=== PATIENT | female | born 1965 | race Caucasian/White ===

== ENCOUNTER 2017-12-16 09:07 | Day surgery (SDC) | payer OTHER ==
[~2017-12-16] VITALS: Ht 160 cm; Wt 71.7 kg
[2017-12-16 09:46] VITALS: BP 125/85; PULSE 81; RESP 18; TEMP 98.2; O2SAT 98
[2017-12-16] MEDS ORDERED: MULTTAB67 PO (09:49)
[2017-12-16] MEDS ORDERED: VITA250T3 PO (09:49)
[2017-12-16] MEDS ORDERED: CLAR10CA3 PO (09:49)
[2017-12-16] MEDS ORDERED: magnesium PO (09:49)
[2017-12-16] MEDS ORDERED: calcium PO (09:49)
[2017-12-16] MEDS ORDERED: zinc PO (09:49)
[2017-12-16] MEDS ORDERED: ZANT150T2 PO (09:50)
[2017-12-16] MEDS ORDERED: SODIUM CHLORIDE 0.9% FLUSH 10 ML FLUSH IV FLUSH PRN (10:15)
--- NOTE | 2017-12-16 10:39 | HHI.HP ---
History of Present Illness Chief Complaint: R LE venous insufficiency, pain and swelling with recurrent thrombosis History of Present Illness 51 yo female with R>L LE swelling; h/o B LE GSV ablation and sclero without relief. No DVT. no wounds Past/Family/Social History Past Medical History venous insufficiency Past Surgical History appy breast augmentation tonsillectomy bunion surgery Social History RN; nonsmoker Family History [place] Home Medications Reported Medications Ranitidine (Zantac) 150 Mg Tab, PO DAILY for Reduce Stomach Acid, #30 TAB 0 Refills 12/16/17 [zinc] No Conflict Check, PO DAILY 12/16/17 [magnesium] No Conflict Check, PO DAILY 12/16/17 [calcium] No Conflict Check, PO DAILY 12/16/17 Ascorbic Acid (Vitamin C) 250 Mg Tab, PO DAILY for Nutritional Supplement, TAB 0 Refills 12/16/17 Loratadine (Claritin) 10 Mg Cap, PO DAILY for Allergy Management, CAP 0 Refills 12/16/17 Multiple Vitamin (Multiple Vitamin) 1 Tab, 1 TAB PO DAILY for Nutritional Supplement, TAB 0 Refills 12/16/17 Coded Allergies: NSAIDS (Non-Steroidal Anti-Inflamma (Verified Allergy, Unknown, 12/16/17) Uncoded Allergies: steroids (Adverse Reaction, Unknown, 12/16/17) Review of Systems Constitutional: COMPLAINS OF: Fever Physical Exam Vitals/I&O Date Time Temp Pulse Resp B/P (MAP) Pulse Ox O2 Delivery O2 Flow Rate FiO2 12/16/17 09:46 98.2 81 18 125/85 (98) 98 Neuro: alert, oriented and no distress HEENT: NC/AT; anicteric sclera Neck: no JVD Heart: reg rate Lungs: nonlabored breathing Vascular: palpable pedal pulses Extremities: thrombosis R LE GSV mildly TTP no erythema, rashes or wounds Laboratory Tests Test 12/16/17 10:05 Caprini VTE Risk Assessment Caprini VTE Risk Assessment: No/Low Risk (score <= 1) Caprini Risk Assessment Model Point Value = 1 Point Value = 2 Point Value = 3 Point Value = 5 Age 41-60 Minor surgery BMI > 25 kg/m2 Swollen legs Varicose veins or History of unexplained or recurrent spontaneous Oral contraceptives or hormone replacement Sepsis (< 1 month) Serious lung disease, including pneumonia (< 1 month) Abnormal pulmonary function Acute myocardial infarction Congestive heart failure (< 1 month) History of inflammatory bowel disease Medical patient at bed rest Age 61-74 Arthroscopic surgery Major open surgery (> 45 min) Laparoscopic surgery (> 45 min) Malignancy Confined to bed (> 72 hours) Immobilizing plaster cast Central venous access Age >= 75 History of VTE Family history of VTE Factor V Leiden Prothrombin [id number] Lupus anticoagulant Anticardiolipin antibodies Elevated serum homocysteine Heparin-induced thrombocytopenia Other congenital or acquired thrombophilia Stroke (< 1 month) Elective arthroplasty Hip, pelvis, or leg fracture Acute spinal cord injury (< 1 month) Prophylaxis Regimen Total Risk Factor Score Risk Level Prophylaxis Regimen 0-1 Low Early ambulation 2 Moderate Order ONE of the following: *Sequential Compression Device (SCD) *Heparin 5000 units SQ BID 3-4 Higher Order ONE of the following medications: *Heparin 5000 units SQ TID *Enoxaparin/Lovenox 40 mg SQ daily (WT < 150 kg, CrCl > 30 mL/min) *Enoxaparin/Lovenox 30 mg SQ daily (WT < 150 kg, CrCl > 10-29 mL/min) *Enoxaparin/Lovenox 30 mg SQ BID (WT < 150 kg, CrCl > 30 mL/min) AND/OR *Sequential Compression Device (SCD) 5 or more Highest Order ONE of the following medications: *Heparin 5000 units SQ TID (Preferred with Epidurals) *Enoxaparin/Lovenox 40 mg SQ daily (WT < 150 kg, CrCl > 30 mL/min) *Enoxaparin/Lovenox 30 mg SQ daily (WT < 150 kg, CrCl > 10-29 mL/min) *Enoxaparin/Lovenox 30 mg SQ BID (WT < 150 kg, CrCl > 30 mL/min) AND *Sequential Compression Device (SCD) Assessment and Plan Plan R LE venous insufficiency, failed saphenous ablation Plan for R LE saphenectomy Discharge Planning later today [facility] [phone] Vlad Miranda MD Dec 16, 2017 10:39
[2017-12-16] MEDS ORDERED: LIDOCAINE HCL 2% 50 ML VIAL ONE (10:50)
[2017-12-16] MEDS ORDERED: fentaNYL CITRATE 250 MCG/5 ML AMP ONE (10:50)
[2017-12-16] MEDS ORDERED: MIDAZOLAM HCL 2 MG/2 ML VIAL ONE ×2 (10:50→11:13)
[2017-12-16] MEDS ORDERED: ceFAZolin INJ 1,000 MG VIAL ONE (10:52)
--- NOTE | 2017-12-16 11:55 | HHI.PR ---
cc: Vlad Miranda MD Immediate Post Op Note Procedure Date: Dec 16, 2017 Pre Op Diagnosis: R LE venous insufficiency, s/p failed ablation Post Op Diagnosis: R LE venous insufficiency Surgeon: Vlad Miranda Independent Marketing Consultant(s): none Procedure: R LE ligation and stripping Findings: sclerosed vein Additional Information: pt elvis well Complications: none Specimen(s) removed: none for pathology Estimated blood loss: 20mL Anesthesia: MAC Drains: None Fluids: 400mL IVF Patient to: Other (DOCU) Patient Condition: Good Date/Time of Procedure: SEE SURGICAL CARE RECORD Vlad Miranda MD Dec 16, 2017 11:55
[2017-12-16] MEDS ORDERED: MORPHINE SULFATE 2 MG/ML INJ IV PRN (12:00)
[2017-12-16] MEDS ORDERED: NORC5TAB PO (12:52)
--- NOTE | 2017-12-18 09:50 | MP ---
cc: Vlad Miranda MD DATE OF OPERATION: 12/16/2017 PREOPERATIVE DIAGNOSIS: Symptomatic venous insufficiency status post failed ablation and attempted medical compression. POSTOPERATIVE DIAGNOSIS: Symptomatic venous insufficiency status post failed ablation and attempted medical compression. PROCEDURE: Right lower extremity long saphenous ligation and stripping. ATTENDING SURGEON: Vlad Miranda MD ANESTHESIA: Local with sedation. INDICATIONS: Ms. Angulo is a lady who has bilateral lower extremity interventions elsewhere that she describes as ablation followed by sclerotherapy. She has recurrent symptoms and on duplex she had a patent and incompetent saphenous vein. Her right leg is worse than her left and she was offered a saphenous vein excision which was in essence a stripping. She accepted these risks and we proceeded. DESCRIPTION OF PROCEDURE: Informed consent was obtained from the patient. She was taken to the operating room and placed supine on the operating room table and appropriate time out was taken to ensure the patient's identity, operative site and planned procedure. Two grams of Ancef was initiated prior to the skin incision and will be discontinued after a single preoperative dose. Everyone in the room agreed with the time out and we proceeded. Her right leg was prepped and draped and using ultrasonographic guidance, the saphenous vein was identified and liberal application and injection of Lidocaine was performed and a series of about six incisions were made within the skin with an 11 blade and the saphenous vein was identified and encircled with a right angle clamp. The saphenous vein up near the saphenofemoral junction was clamped with a right angle, the vein was transected and the proximal end was oversewn with a silk suture. The remainder of the saphenous vein was ligated and stripped down to the mid calf. The wounds were all made hemostatic and closed with 3-0 Polysorb and 4-0 Monocryl. The sponge and needle counts were correct at the end of the case. At the end of the case, the patient's leg was wrapped with an Mario bandage and she was taken to the recovery room in stable condition. There were no complications. I was present, scrubbed and performed the entire procedure. Vlad Miranda MD RJF/DL/rr , 05:44 AM , 06:51 AM
[2017-12-21] MEDS ORDERED: CHEL50TA PO (10:34)
[2017-12-21] MEDS ORDERED: CALC12502 PO (10:34)
[2017-12-21] MEDS ORDERED: MAGN400T24 PO (10:34)
== END 2017-12-16 14:45 | disposition home or self-care (01) ==
LOC: HDOC 09:07 → HDIC 09:08 → HDOC 14:45
PROVIDERS: ATTEND Surgery
DX: I87.2 Venous insufficiency (chronic) (peripheral) (principal); I82.5Z1 Chronic embolism and thrombosis of unspecified deep veins of right distal lower extremity; M79.661 Pain in right lower leg
CPT/HCPCS: 37722; 84702; 99152; 99153; J0690; J2250; J3010